=== PATIENT | female | born 1995 | race Two or more races ===

== ENCOUNTER → 2021-10-22 | Outpatient (CLI) | payer OTHER ==
--- NOTE | 2021-10-22 12:04 | RAD ---
Complete Abdominal Ultrasound: Clinical History: Reason: FATTY LIVER/FAMILY HX LIVER CA / Spl. Instructions: / History: Technique: Sonographic examination of the abdomen was performed and multiple static images were obta ined. Findings: Liver: The majority is visualized and appears homogeneous. There is increased echogenicity attenuatio n of sound which further limits ultrasound sensitivity for possible subtle liver lesion. Common bile duct: Appears normal measures 3 mm in diameter. Gallbladder: There are shadowing stones however there is no wall thickening or surrounding fluid or tenderness. Portal vein: Appears normal. Pancreas: is not well visualized due to overlying bowel gas but appears within normal limits. Right kidney: appears normal and measures 12 cm in length. Left kidney appears normal and measures 13 cm in length. Spleen: Not enlarged. Impression: 1. Fatty infiltration of liver. 2. Cholelithiasis without evidence of acute cholecystitis. Electronically signed by: Surinder Dee III, MD (10/22/2021 12:02 PM) [facility]
== END ==
LOC: US 09:18
PROVIDERS: ATTEND Internal Medicine
DX: K76.0 Fatty (change of) liver, not elsewhere classified (principal); K80.80 Other cholelithiasis without obstruction
CPT/HCPCS: 76700